=== PATIENT | female | born 1985 | race Hispanic/Latino ===

== ENCOUNTER 2017-08-27 10:20 | Day surgery (SDC) | payer SELFPAY ==
[2017-08-27 12:09] VITALS: BMI 32.0
[2017-08-27 12:31] LABS: FFN Internal QC Analyzer PASS (PASS); FFN Internal QC Cassette PASS (PASS); Fetal Fibronectin Negative (Negative)
[2017-08-27] MEDS ORDERED: Acetaminophen 500 MG TAB PO SCH (13:00)
--- NOTE | 2017-08-27 15:49 | ULT ---
COMPLETE OBSTETRICAL ULTRASOUND 08/27/17 INDICATION: Twin with contractions. FINDINGS: The twin labeled fetus A is on the maternal left and is in breech presentation with the placenta bein g fundal in location. The estimated weight is 4 lb. 5 oz. which is 28th percentile based on Had lock. The gestational age by ultrasound is 32 weeks and 1 day with estimated due date of 10/21/17. Car diac activity is noted at 150 beats per minute. The HOLDEN is approximately 10.1 cm. Twin B is on the maternal right when lying in a transverse position with the head to the maternal rig ht. The placenta is posterior in location without evidence of previa. Cardiac activity is noted at 13 3 beats per minute. The estimated weight of fetus B is 4 lb. 2 oz. +/- 10 oz or 21st percentile based on Hadlock. Estimated gestation age by ultrasound for twin G is 31 weeks, 6 days with estimate d due date of 10/23/17. The amniotic fluid index for twin B was 12.9 cm. IMPRESSION: Live twin twin pregnancies as above. POS: [facility]
--- NOTE | 2017-08-27 18:52 | PRG ---
DATE OF SERVICE: 08/27/2017 PRESENTING COMPLAINT: Lower abdominal pain with twins at 32-33 weeks gestation. HISTORY OF PRESENT ILLNESS: The patient was sent over by [facility] as after her visit with [facility] for a complaint of lower abdominal pain. She denies rupture of membranes. She denies bleeding. She reports an active fetus x2. OB AND PATIENT ACCESS DIRECTOR HISTORY: x2. The patient at 32-33 weeks with dichorionic diamniotic twins. PAST MEDICAL HISTORY: None. PAST SURGICAL HISTORY: None. ALLERGIES: Denies. MEDICATIONS: vitamins. SOCIAL HISTORY: Denies tobacco, alcohol or drug use. FAMILY HISTORY: Noncontributory. REVIEW OF SYSTEMS: Noncontributory. OBJECTIVE: GENERAL: female, in no acute distress, laughing. Blood type B positive, antibody negative, Pap negative, rubella immune and VDRL nonreactive. Group B Strep positive on urine culture. Final TERRY is 10/17/2017. VITAL SIGNS: The patient's temperature is 97.6, respirations 18, pulse 85 and blood pressure 110/72. HEENT: Within normal limits. LUNGS: Clear to auscultation bilaterally. HEART: Regular rhythm. ABDOMEN: Soft, nontender with occasional uterine irritability, but no definite contractions. Fundal height is 35 cm. FHTs are 130s-150s. PELVIC: Vulva is without lesions. Vagina without discharge. Cervix is fingertip long and high, pre senting part not palpable. EXTREMITIES: Without clubbing, cyanosis or edema. LABORATORY AND IMAGING STUDIES: fibronectin collected prior to digital cervical exam was negat alba. Ultrasound: Final results are pending, but preliminary has been concordant weight with normal fluid on both gestational sacs and breech presentation of twin A. COURSE OF CARE: The patient was observed on the labor and delivery unit for approximately 2 hours. She had uterine irritability without definite contractions. She did not have any cervical change. S he had reactive heart rate tracing x2, category 1 tracing. Her uterine irritability decreased with p.o. hydration. IMPRESSION: Twin at 32-33 weeks gestation with a negative fibronectin. No evidence of labor. PLAN: ER precautions, discharge home, and keep scheduled follow up at [facility] with Dr. Jeffrey olpez/Susana.
== END 2017-08-27 14:00 ==
LOC: L&D/OP 10:20
PROVIDERS: ATTEND Obstetrics & Gynecology
DX: O99.89 Other specified diseases and conditions complicating pregnancy, childbirth and the puerperium (principal); R10.30 Lower abdominal pain, unspecified; O30.043 Twin pregnancy, dichorionic/diamniotic, third trimester; Z3A.32 32 weeks gestation of pregnancy; Z79.899 Other long term (current) drug therapy; Z88.0 Allergy status to penicillin
CPT/HCPCS: 76805; 82731

== ENCOUNTER 2017-09-24 18:58 | Day surgery (SDC) | payer OTHER ==
[2017-09-24 19:33] VITALS: BMI 29.7
[2017-09-24 19:34] VITALS: BP 126/80; TEMP 98.7
--- NOTE | 2017-09-24 20:17 | PDOC.EVN ---
Event Note - Event Note Event Note: 09/25/15 at 2010: Triage B in L&D Please see coompleted H&P in the handwritten progress notes In brief: Patient of Dr Nhan Mcnamara complaint: 36 week 5 days with twins, has CS scheduled Wednesday for Twin A breech. Here for lower pressure HPI: 32 yo multip with no CS HX here for LAP. No ROM, NO VB. Good FM x 2. Review of systems completed and negative. Past medical: neg Social: negative for etoh, drugs use, tobacco Surg: none OB HX in past Physical: afebrile and normotensive NAD No uterine palpable contractons Cervix pending NST: reactive x2 No contractions Assessment and plan: 35- 36 weeks twins, scheduled for CS in 2 days, with LAP. No evidence ROM or clinically of PTL 1. Check CX 2. Order sono to check positions 3. Monitors and obs in L&D 4. Outpatient follow up if no evidence gross dilation or labor
--- NOTE | 2017-09-24 20:31 | PDOC.EVN ---
Event Note - Event Note Event Note: CX FT to 1cm/thick/high. BOWI. OK to discharge home after sono for positions
--- NOTE | 2017-09-24 21:38 | ULT ---
LIMITED OB ULTRASOUND 09/24/17 HISTORY: Twin intrauterine gestation. Evaluation of positioning was requested. FINDINGS: There is evidence of a twin intrauterine gestation. heart tones are documented with cardiac dop pler demonstrating heart rate of twin QA of 149 beats per minute with heart rate in twin B of 165 beats per minute. Baby A is in breech presentation with baby B in transverse lie with the he ad to the material right. A biparietal diameter of A was obtained measuring 8.64 cm which would be consistent with gestat ional age of 34 weeks and 6 days, and biparietal diameter of B is 8.76 cm corresponding to gest ational age of 35 weeks and 3 days. This exam was not obtained for evaluation of the leading edge of the placenta or for evaluation of anatomical structures. Only limited images are provided. Ther e is a single image demonstrating what appears to be membrane between each fetus. IMPRESSION: 1. Twin intrauterine gestation with heart tones documented in each fetus. 2. Twin A is in breech presentation on the maternal left with twin B in transverse lie, head to the maternal right. POS: [facility]
== END 2017-09-24 21:00 | disposition home or self-care (01) ==
LOC: L&D/OP 18:58
PROVIDERS: ATTEND Family Medicine
DX: O99.89 Other specified diseases and conditions complicating pregnancy, childbirth and the puerperium (principal); R10.30 Lower abdominal pain, unspecified; O32.1XX1 Maternal care for breech presentation, fetus 1; O32.2XX2 Maternal care for transverse and oblique lie, fetus 2; O30.003 Twin pregnancy, unspecified number of placenta and unspecified number of amniotic sacs, third trimester; Z3A.36 36 weeks gestation of pregnancy; Z79.899 Other long term (current) drug therapy; Z88.0 Allergy status to penicillin; Z88.5 Allergy status to narcotic agent
CPT/HCPCS: 76810

== ENCOUNTER 2018-12-07 10:54 | Day surgery (SDC) | payer OTHER ==
[2018-12-07] MEDS ORDERED: Acetaminophen 500 MG TAB PO PRN (11:35)
[2018-12-07 11:37] VITALS: BP 106/66; TEMP 98.6; BMI 30.4
[2018-12-07] MEDS ORDERED: Iron Sucrose Complex 500 MG in Sodium Chloride 0.9% 250 ML 250 ML IVPB SCH (11:45)
== END 2018-12-07 17:30 | disposition home or self-care (01) ==
LOC: L&D/OP 10:54
PROVIDERS: ATTEND Obstetrics & Gynecology
DX: O99.019 Anemia complicating pregnancy, unspecified trimester (principal); D64.9 Anemia, unspecified
CPT/HCPCS: 96361; 96365; 96366; 99283; J1756; J7050

== ENCOUNTER 2019-01-16 08:01 | Outpatient (CLI) | payer OTHER ==
--- NOTE | 2019-01-16 09:51 | ULT ---
OB ULTRASOUND: HISTORY: Followup. FINDINGS: A single live intrauterine gestation is seen with measurements corresponding to an estimated gestatio nal age of 31 weeks 1 day and an TERRY of 03/19/2019. The estimated weight measures 1677 g or 3 lbs 11 oz (98th percentile by Hadlock criteria). measurements are as follows: BPD: 7.62 cm (30 weeks 4 days) HC: 28.62 cm (31 weeks 4 day) AC: 26.99 cm (31 weeks 1 day) FL: 5.90 cm (30 weeks 6 days) heart rate measures 135 beats per minute. The placenta is posteriorly located without evidence of placenta previa. HOLDEN measures 16.9 cm. Cervical length measures 4.9 cm. IMPRESSION: Single live intrauterine of 31 weeks 1 day estimated gestational age and an estimated date of delivery of 03/19/2019. POS: [facility]
== END 2019-01-16 08:02 | disposition home or self-care (01) ==
LOC: BICULT 08:01
DX: O09.93 Supervision of high risk pregnancy, unspecified, third trimester (principal); Z3A.31 31 weeks gestation of pregnancy
CPT/HCPCS: 76816

== ENCOUNTER 2019-03-03 11:36 | Day surgery (SDC) | payer OTHER ==
[2019-03-03 12:28] VITALS: BP 121/79; TEMP 98.1; BMI 30.5
[2019-03-03] MEDS ORDERED: hydrALAZINE 20 MG/ML VIAL SLOW IVP PRN (13:05)
--- NOTE | 2019-03-03 13:13 | PDOC.LDHP ---
Labor and Delivery H&P Chief complaint: decreased movement (Sent for NST by Dr Sepulveda from [facility]) HPI: 33 yo (one set of twins) living 4...AB1 at 36 weeks-37 weeks with EDC . here for decreased FM recently but now resolved. No VB, no LOF. No recent trauma, Review of Systems: complete ROS completed and as per HPI Current gestational age (weeks): 36 Dating criteria: last menstrual period Grav: 5 Para: 3 (living 4, due to twins; AB1) OB History Details: CS x1, with last being SAB Current complications: none Abnormal US findings: No Past Medical History: none Current medications: pre- vitamins Previous surgical history: low tranverse CS Allergies/Adverse Reactions: Allergies Allergy/AdvReac Type Severity Reaction Status Date / Time Penicillins Allergy Severe Hives Verified 03/03/19 12:29 morphine AdvReac Verified 03/03/19 12:29 - Physical Exam Vital signs reviewed and normal: yes (121/79) General: NAD Heart: RRR Lungs: CTAB Abdomen: gravid Extremeties: no edema FHT: category 1, variability present [employer] contractions every: no one - Assessment Decreased FM at 36 weeks, prior CS...reactive NST - Plan Plan: observation in L&D (NST ok; has repeat CS scheduled on 03/15/19)
--- NOTE | 2019-03-03 13:17 | PDOC.LDHP ---
Labor and Delivery H&P Chief complaint: decreased movement HPI: see other entry Allergies/Adverse Reactions: Allergies Allergy/AdvReac Type Severity Reaction Status Date / Time Penicillins Allergy Severe Hives Verified 03/03/19 12:29 morphine AdvReac Verified 03/03/19 12:29
--- NOTE | 2019-03-03 13:20 | PDOC.EVN ---
Event Note - Event Note Event Note: Mely attempted vag exam with me in room but cx too high for good exam, but patient states was 3cm in clinic this AM...clinically, she is not laboring at this time
== END 2019-03-03 13:30 | disposition home or self-care (01) ==
LOC: L&D/OP 11:36
PROVIDERS: ATTEND Obstetrics & Gynecology
DX: O36.8130 Decreased fetal movements, third trimester, not applicable or unspecified (principal); Z3A.36 36 weeks gestation of pregnancy; Z79.899 Other long term (current) drug therapy; Z88.0 Allergy status to penicillin; Z88.5 Allergy status to narcotic agent
CPT/HCPCS: 59025; 99282

== ENCOUNTER 2019-03-16 05:34 | Inpatient (IN) | payer MEDICAID, OTHER, SELFPAY ==
[2019-03-16 05:57] VITALS: BMI 32.5
[2019-03-16] MEDS ORDERED: FLU VACC QS2019-20(6MOS UP)/PF 60 MCG/0.5 ML SYRINGE IM ONE (06:15)
[2019-03-16 06:21] LABS: Hemoglobin 10.3 g/dL (12.0-16.0); Mean Corpuscular HGB CONC 32.6 g/dL (32.0-36.0); Mean Corpuscular Hemoglobin 24.6 pg (27.0-31.0); Mean Corpuscular Volume 75.3 fL (78.0-98.0); Mean Platelet Volume 7.8 fL (7.4-10.4); Platelet Count 289 thou/uL (130-400); RBC Distribution Width 18.5 % (11.5-14.5); White Blood Cell (WBC) Count 7.3 thou/uL (4.8-10.8)
[2019-03-16] MEDS ORDERED: CEFAZOLIN 2 GM in Premix Bag 1 BAG IVPB SCH (06:30)
[2019-03-16] MEDS ORDERED: Fentanyl 100 MCG/2 ML VIAL ONE (06:59)
[2019-03-16] MEDS ORDERED: EPINEPHrine 1 MG/10 ML Abboject SYRINGE ONE (07:00)
[2019-03-16] MEDS ORDERED: Oxytocin 10 UNITS/ML VIAL ONE ×2 (07:00→08:22)
[2019-03-16] MEDS ORDERED: Dexamethasone 4 mg/ml Vial ONE (07:00)
[2019-03-16] MEDS ORDERED: PHENYLEPHRINE-NS 100 MCG/ML 10 ML SYRINGE ONE (07:00)
[2019-03-16] MEDS ORDERED: Ondansetron PF 4 MG/2 ML Vial ONE (07:00)
[2019-03-16] MEDS ORDERED: Ketorolac Tromethamine 30 MG/ML VIAL ONE (07:00)
[2019-03-16] MEDS ORDERED: ePHEDrine/0.9% NaCl/PF SYRINGE 50 mg/10 ml ONE (07:01)
[2019-03-16 07:03] LABS: Syphilis Antibody Nonreactive (Nonreactive); Syphilis Antibody Index 0.04 S/CO (<1.00 Non-Reactive)
[2019-03-16 07:04] LABS: HBSAg Index 0.17 S/CO (0-0.99); Hep B Surf Ag Non-Reactive S/CO (NonReactive)
[2019-03-16] MEDS ORDERED: Lactated Ringer's 1,000 ML IV SCH (07:30)
[2019-03-16] MEDS ORDERED: Ondansetron HCl/PF 4 MG/2 ML Vial IVP PRN (08:54)
[2019-03-16] MEDS ORDERED: HYDROmorphone 2 MG/ML VIAL SLOW IVP PRN (08:54)
[2019-03-16] MEDS ORDERED: Meperidine HCl/PF 25 MG/ML VIAL SLOW IVP PRN (08:54)
[2019-03-16] MEDS ORDERED: Ketorolac Tromethamine 30 MG/ML VIAL IVP SCH (09:00)
[2019-03-16] MEDS ORDERED: Ondansetron PF 4 MG/2 ML Vial IVP PRN (09:18)
[2019-03-16] MEDS ORDERED: hydrALAZINE 20 MG/ML VIAL SLOW IVP PRN (09:18)
[2019-03-16] MEDS ORDERED: Promethazine HCl 25 MG/ML VIAL IM PRN (09:18)
[2019-03-16] MEDS ORDERED: Lanolin Ointment 7 GM TUBE TOP PRN (09:18)
[2019-03-16] MEDS ORDERED: Adacel (T-DAP) 0.5 ML SYRINGE IM ONE (09:18)
[2019-03-16] MEDS ORDERED: Meperidine HCl/PF 25 MG/ML VIAL ONE (11:01)
[2019-03-16] MEDS: HYDROcodone/Acetaminophen 5/325 mg Tablet PO PRN ×3 (13:40→20:15)
[2019-03-16] MEDS: Ibuprofen 800 MG TAB PO SCH ×2 (13:40→21:31)
[2019-03-16] MEDS: Lactated Ringer's 1,000 ML IV SCH ×2 (14:15→18:10)
[2019-03-16] MEDS: Simethicone Chewable 80 MG TAB PO PRN ×2 (14:45→21:31)
[2019-03-16] MEDS: Ferrous Sulfate 325 MG TAB PO SCH (14:52)
[2019-03-16] MEDS: Docusate Calcium (SURFAK) 240 MG CAP PO SCH (20:16)
[2019-03-17] MEDS: HYDROcodone/Acetaminophen 5/325 mg Tablet PO PRN ×3 (02:15→20:10)
[2019-03-17] MEDS: Ibuprofen 800 MG TAB PO SCH ×3 (05:08→21:50)
[2019-03-17 06:32] LABS: Mean Corpuscular HGB CONC 32.5 g/dL (32.0-36.0); Mean Corpuscular Hemoglobin 24.3 pg (27.0-31.0); Mean Corpuscular Volume 74.9 fL (78.0-98.0); Mean Platelet Volume 7.3 fL (7.4-10.4); Platelet Count 241 thou/uL (130-400); RBC Distribution Width 18.1 % (11.5-14.5); Red Blood Cell (RBC) Count 3.28 mill/uL (4.20-5.40); White Blood Cell (WBC) Count 10.5 thou/uL (4.8-10.8)
[2019-03-17] MEDS: Lactated Ringer's 1,000 ML IV SCH ×3 (06:36→16:50)
[2019-03-17] MEDS: Ferrous Sulfate 325 MG TAB PO SCH ×2 (08:03→16:03)
[2019-03-17] MEDS: Prenatal Vitamin 1 TAB PO SCH (08:03)
[2019-03-17] MEDS: Docusate Calcium (SURFAK) 240 MG CAP PO SCH ×2 (08:03→20:11)
[2019-03-17] MEDS: Simethicone Chewable 80 MG TAB PO PRN (16:03)
[2019-03-18] MEDS: Lactated Ringer's 1,000 ML IV SCH ×3 (01:57→17:11)
[2019-03-18] MEDS: HYDROcodone/Acetaminophen 5/325 mg Tablet PO PRN (05:39)
[2019-03-18] MEDS: Ibuprofen 800 MG TAB PO SCH ×3 (05:39→20:47)
[2019-03-18] MEDS: Ferrous Sulfate 325 MG TAB PO SCH ×2 (08:14→16:46)
[2019-03-18] MEDS: Prenatal Vitamin 1 TAB PO SCH (08:14)
[2019-03-18] MEDS: Docusate Calcium (SURFAK) 240 MG CAP PO SCH ×2 (08:14→20:47)
[2019-03-18 19:58] VITALS: BP 116/73; TEMP 98.7
--- NOTE | 2019-03-20 15:23 | OP ---
DATE OF PROCEDURE: 03/16/2019 PREOPERATIVE DIAGNOSES: 1. A 33-year-old multiparous with a history of a previous section, here for scheduled repeat low-transverse section at 39+ weeks. 2. Group B Streptococcus negative. POSTOPERATIVE DIAGNOSES: 1. A 33-year-old multiparous with a history of a previous section, here for scheduled repeat low-transverse section at 39+ weeks. 2. Group B Streptococcus negative. 3. Live-born male with Apgars of 8 and 9 at 1 and 5 minutes respectively, weighing 7 pounds and 7 ounces. ANESTHESIA: Spinal. PLASTICS WORKER: Resident, Ophelia Cuevas. ESTIMATED BLOOD LOSS: 700 mL. QUANTITATIVE BLOOD LOSS: 640 mL. PROCEDURE PERFORMED: Repeat low-transverse section. CLINICAL HISTORY: This patient is a 33-year-old female with a history of a previous low-transverse section for twins and decided on a repeat low-transverse section versus a vaginal after . She had an uneventful course other than advanced cervical dilation. She was admitted on the scheduled date after 39 weeks for her section and continued to endorse the decision to avoid a vaginal delivery. DESCRIPTION OF PROCEDURE: The patient was taken to the operating room, where spinal anesthesia was obtained. She was laid in the supine position with a leftward tilt and Doptones were obtained, which were within normal limits. She was prepped and draped in the usual sterile fashion and after testing for adequate anesthesia, an incision was made over her previous incision in the lower abdomen in a Pfannenstiel manner. This incision was then carried down to the fascia. The fascia was nicked in the midline and extended out bilaterally. The rectus muscles were then liberated from the superior and inferior edge of the fascia by elevating it with a Yunier clamps using a combination of blunt and sharp dissection. The rectus muscles were then in the midline by using two hemostats to elevate the tissue and then using the Metzenbaum scissors to make an incision in the midline. This incision was taken upward and the peritoneum was gently dissected towards and breeched. Once the peritoneal opening was created, this was extended out with a combination of sharp and blunt dissection. The pyramidalis muscles and rectus muscles were then down toward the mons pubis, and the incision was extended with traction. The bladder blade was then placed and a full sweep over the anterior surface of the uterus was performed noting no uterine adhesions. The bladder flap was then created by using the Pakistani forceps and the Metzenbaum scissors and liberating the serosa over the uterus, where the bladder reflection was. This allowed for retraction of the bladder even lower in the pelvis. The lower uterine segment then was opened with a scalpel with small successive swipes to the layer of the amnion and this incision was then extended. The amniotomy was then performed for clear fluid, and the surgeon's hand was then placed into the hysterotomy incision and the vertex was lifted toward the incision and delivered out with pressure from above. The head was delivered followed by the anterior and then the posterior shoulder and then the remainder of the 's body. The infant cried spontaneously and was stimulated. The cord was doubly clamped and then cut, and cord blood was obtained. The infant was taken over to the neonatology station, where the attendants continued to administer care for the . The placenta was then delivered manually intact with a three-vessel cord, and the uterus was exteriorized and cleansed of all debris. The incision was then closed in a running locking fashion with a second imbricating suture with excellent hemostasis. The bladder flap was then reapproximated with a 3-0 Monocryl with excellent hemostasis and the gutters were cleansed of all debris. The four pieces of Seprafilm were then placed over the anterior surface of the uterus and the uterus was placed back inside the abdomen. The Yunier clamps were used x2 to elevate the rectus fascia and the Honey clamps were used x2 to identify the peritoneal edge. The peritoneum was then closed in a full-thickness closure with a running suture and the rectus muscles were then reapproximated in the midline with a loose [id number]-yenta sutures. The prefascial gutters were then cleansed of all debris and the fascia was closed in a running fashion, anchoring the first suture with a locking suture and bearing the knot on the opposite side. The subcutaneous tissue was then copiously irrigated and reapproximated with interrupted 2-0 plain gut sutures. The skin was then closed in a running fashion with a 3-0 Tom needle and reinforced with Steri-Strips and Mastisol. The patient tolerated the procedure well and a pressure dressing was placed over this incision with Telfa and Tegaderm x2. All needle, sponge, lap, and instrument counts were correct x2 at the end of the procedure. The uterus was then expressed on the gurney before transferring out of the room to reunite with her . Again, the infant was a live born male with Apgars of 8 and 9 at 1 and 5 minutes respectively, weighing 7 pounds and 7 ounces. There were no other issues surrounding this delivery. Job ID: [id number]
--- NOTE | 2019-03-23 01:16 | PQF ---
[facility] Crystal Reports Winform ViewerJUAREZ LUCY MIRANDA LEONIDES GRAMAJO MD [id number] CLINICAL DOCUMENTATION CLARIFICATION FORM: POST DISCHARGE Addendum to original discharge summary date: ____ Late entry note date: 03/23/19 DATE: 03/23/2019 ATTN: Ivania Sepulveda MD Please exercise your independent, professional judgment in responding to the clarification form. Clinical indicators are provided on the bottom of this form for your review Please check appropriate box(s): [ ] Acute blood loss anemia [ ] Chronic blood loss anemia [ x ] Iron Deficiency anemia [ ] Other diagnosis [ ] Unable to determine In addition, please specify: Present on Admission (POA): [ x ] Yes [ ] No [ ] Unable to determine For continuity of documentation, please document condition throughout progress notes and discharge summary. Thank You. CLINICAL INDICATORS - SIGNS / SYMPTOMS / LABS Anemia - Documented in Labor&Delivery H&P on 03/16 by Ivania Sepulveda MD Blood Loss 700ml - Documented in Operative report HGB 10.3 on 03/16 and 8.0 on 03/17 - Documented in Laboratory results HCT 31.6 on 03/16 and 24.6 on 03/17 - Documented in Laboratory results BP 106/53 - Documented in Vital Signs RISK FACTORS GBS negative-Documented in Operative report Repeat low transverse section - Documented in Operative report TREATMENTS: Ferrous sulfate 325 mg - Documented in Medication Snapshot (This form is maintained as a part of the permanent medical record) 2014 [email or web address]. All Rights Reserved [email or web address] [not [email or web address]] [email or web address]
== END 2019-03-18 23:30 | disposition home or self-care (01) | DRG 788 ==
LOC: L&D/OP 05:34 → L&D 05:39 → 3SW 11:44
PROVIDERS: ADMIT Obstetrics & Gynecology; ATTEND Obstetrics & Gynecology
PROC: 10D00Z1 Extraction of Products of Conception, Low, Open Approach (ICD-10-PCS; principal; 2019-03-17)
DX: O34.211 Maternal care for low transverse scar from previous cesarean delivery (principal); O99.824 Streptococcus B carrier state complicating childbirth; O99.02 Anemia complicating childbirth; O62.0 Primary inadequate contractions; Z3A.39 39 weeks gestation of pregnancy; Z37.0 Single live birth; D50.9 Iron deficiency anemia, unspecified
CPT/HCPCS: 36415; 51702; 85027; 86780; 86850; 86900; 86901; 87340; J0171; J0690; J1100; J1885; J2175; J2405; J2590; J3010